=== PATIENT | female | born 1950 | race Caucasian/White ===

== ENCOUNTER → 2023-12-26 08:38 | Outpatient (CLI) | payer MEDICARE, OTHER, SELFPAY ==
--- NOTE | 2023-12-26 08:46 | DI.MRI.S_ITS ---
PROCEDURE: MR CERVICAL SPINE WO CON INDICATIONS: Cervical spine pain TECHNIQUE: Noncontrast sagittal T1 spin echo and T2 fast spin echo, sagittal STIR, foraminal oblique sagittal T2 fast spin echo, and axial gradient echo or T2 fast spin echo through the cervical spine. COMPARISON: [facility] [place], [place], XR CERVICAL SPINE 2 OR 3 VIEWS, 12/14/2023, 14:48. FINDINGS: Image quality: Excellent. Alignment and Curvature: Overall mild cervical kyphosis with the apex at C4-5. Grade 1 anterolisthesis C3-4 and C7-T1. Bone Marrow: Marrow demonstrates normal overall signal. Degenerative endplate irregularity at C3-4, C4-5, and C5-6. Spinal Cord: Visualized spinal cord has normal size and signal. No cerebellar tonsillar herniation. Paraspinous Soft Tissues: No paravertebral masses. Prevertebral soft tissues are normal in thickness. C2-C3: Posterior endplate osteo and mild disc height loss. No significant central canal or foraminal stenosis. C3-C4: Moderate circumferential disc osteophyte and facet arthropathy. Moderate central canal stenosis with near complete effacement of CSF. Moderate to severe bilateral foraminal stenosis. C4-C5: Moderate broad-based posterior disc osteophyte. Bilateral facet arthropathy. Severe right and mild left foraminal stenosis. Moderate to severe central canal narrowing with flattening of the cord shape. C5-C6: Moderate posterior disc osteophyte causing moderate central canal stenosis. Moderate right and mild left facet arthropathy. Severe left and moderately severe right foraminal narrowing. C6-C7: Disc height loss with minor circumferential disc osteophyte. No significant foraminal or central canal stenosis. C7-T1: Anterolisthesis without foraminal or central canal stenosis. IMPRESSION: Multilevel moderate to severe central canal stenosis, most severe at C4-5. Multilevel bilateral foraminal stenosis due to disc osteophyte and facet arthropathy present from C3-4 through C5-6. Dictated by: Gypsy Reeves M.D. on 12/27/2023 at 8:33 Approved by: Gypsy Reeves M.D. on 12/27/2023 at 8:44
== END ==
PROVIDERS: Referring Provider Physical Medicine & Rehabilitation; Visit Provider Physical Medicine & Rehabilitation
DX: M48.02 Spinal stenosis, cervical region (principal); M47.812 Spondylosis without myelopathy or radiculopathy, cervical region
CPT/HCPCS: 72141